=== PATIENT | male | born 1990 | race Caucasian/White ===

== ENCOUNTER 2018-11-26 09:36 | Emergency (ER) | payer OTHER ==
[2018-11-26 09:49] VITALS: RESP 18
--- NOTE | 2018-11-26 10:29 | ED ---
General Adult HPI - General Chief complaint: Fall Stated complaint: Fall-[facility] Time Seen by Provider: 11/26/18 09:45 Source: patient, EMS, RN notes reviewed Mode of arrival: EMS Limitations: no limitations - History of Present Illness Initial comments: This a 28-year-old male presents emergency Department with thoracic back pain. Patient is stating that he was at work and fell off a ladder his feet were six- foot hyper patient states he landed flat on his back per patient states he was wearing a hardhat and doesn't believe he hit his head. Patient denies any headache patient denies any loss of consciousness or being days. Patient denies any neck pain. Patient denies any numbness weakness. Patient denies any chest pain patient denies any difficulty breathing first breath per patient denies any abdominal pain patient denies any extremity pain. Patient states he is full range motion of all 4 tremors. Patient's only complaint is pain on the spine between her shoulder blades. - Related Data Home Medications Medication Instructions Recorded Confirmed Metadate Cd 40mg 40 mg PO DAILY 11/26/18 11/26/18 Previous Rx's Medication Instructions Recorded Ibuprofen [Motrin] 800 mg PO Q6H #20 tab 11/26/18 Allergies Allergy/AdvReac Type Severity Reaction Status Date / Time No Known Allergies Allergy Unverified 11/26/18 09:49 Review of Systems ROS Statement: Those systems with pertinent positive or pertinent negative responses have been documented in the HPI. ROS Other: All systems not noted in ROS Statement are negative. Past Medical History Past Medical History: No Reported History History of Any Multi-Drug Resistant Organisms: None Reported Past Surgical History: No Surgical Hx Reported Additional Past Surgical History / Comment(s): wisdom teeth removal 2011 Past Psychological History: No Psychological Hx Reported Smoking Status: Never smoker Past Alcohol Use History: None Reported Past Drug Use History: None Reported General Exam - General Exam Comments Initial Comments: GENERAL: Patient is well-developed and well-nourished. Patient is nontoxic and well- hydrated and is in mild distress. ENT: Neck is soft and supple. No significant lymphadenopathy is noted. Oropharynx is clear. Moist mucous membranes. Neck has full range of motion without eliciting any pain. EYES: The sclera were anicteric and conjunctiva were pink and moist. Extraocular movements were intact and pupils were equal round and reactive to light. Eyelids were unremarkable. PULMONARY: Unlabored respirations. Good breath sounds bilaterally. No audible rales rhonchi or wheezing was noted. CARDIOVASCULAR: There is a regular rate and rhythm without any murmurs gallops or rubs. ABDOMEN: Soft and nontender with normal bowel sounds. SKIN: Skin is clear with no lesions or rashes and otherwise unremarkable. NEUROLOGIC: Patient is alert and oriented x3. Cranial nerves II through XII are grossly intact. Motor and sensory are also intact. Normal speech, volume and content. Symmetrical smile. MUSCULOSKELETAL: Normal extremities with adequate strength and full range of motion. No lower extremity swelling or edema. No calf tenderness. Patient has some tenderness between his shoulder blades right on the spine. Patient has no scapular tenderness. Patient has no lower back tenderness. Patient has no C-spine tenderness. LYMPHATICS: No significant lymphadenopathy is noted PSYCHIATRIC: Normal psychiatric evaluation. Limitations: no limitations Course Vital Signs 11/26/18 11/26/18 11/26/18 09:37 10:00 10:15 Temperature 98.7 F Pulse Rate 105 H Respiratory 18 18 18 Rate Blood Pressure 140/97 140/97 130/93 O2 Sat by Pulse 100 100 Oximetry 11/26/18 11/26/18 10:30 10:45 Temperature Pulse Rate 90 Respiratory 18 18 Rate Blood Pressure 118/90 111/84 O2 Sat by Pulse 100 Oximetry Medical Decision Making - Medical Decision Making CT of the chest abdomen pelvis showed no acute abnormality. Patient was able to move her about the ER felt a little stiff. Patient had no new symptoms. Patient did receive Toradol emergency department. Disposition Clinical Impression: Fall, Thoracic back pain Disposition: HOME SELF-CARE Condition: Good Instructions (If sedation given, give patient instructions): Thoracic Pain (ED) Prescriptions: Ibuprofen [Motrin] 800 mg PO Q6H #20 tab Is patient prescribed a controlled substance at d/c from ED?: No Referrals: Ayden Caballero MD [Primary Care Provider] - 1-2 days Time of Disposition: 11:47
--- NOTE | 2018-11-26 11:18 | CT ---
EXAMINATION TYPE: CT ChestAbdPelvis w con DATE OF EXAM: 11/26/2018 COMPARISON: None. HISTORY: Fall injury with diffuse pain worse in the upper back. CT DLP: 797.9 mGycm. Automated Exposure Control for Dose Reduction was Utilized. CONTRAST: CT scan of the thorax, abdomen and pelvis is performed with IV Contrast, patient injected with 100 mL of Isovue 300. Trauma protocol. FINDINGS: LUNGS: Some patchy dependent atelectasis in both bases is present otherwise lungs are clear. No pleur al effusion or pneumothorax is seen. Tracheobronchial tree is patent. No suspicious nodules or masses MEDIASTINUM: There are no greater than 1 cm hilar or mediastinal lymph nodes. No cardiomegaly or pe ricardial effusion is seen. Some residual thymus tissue suspected in the anterior superior mediastin um OTHER: Small degree of bilateral subareolar gynecomastia axial image 27. LIVER/GB: Some small dependent calculi in gallbladder axial image 55. Liver is low density consistent with fatty infiltration. PANCREAS: No significant abnormality is seen. SPLEEN: No significant abnormality is seen. ADRENALS: No significant abnormality is seen. KIDNEYS: There is 6 mm calculus upper pole level left kidney axial image 57. BOWEL: Incidental wandering cecum into the anterior upper pelvis axial image 97. Terminal ileum is fe nando filled coronal image 34. Small bowel feces sign is consistent with delayed passage of ingested ma terial to colonic level as there is additional fecal material in the distal ileum in the right lower quadrant. No suspicious small bowel dilatation is seen to suggest bowel obstruction . GENITAL ORGANS: No gross abnormality seen. LYMPH NODES: No greater than 1cm abdominal or pelvic lymph nodes are appreciated. OSSEOUS STRUCTURES: No significant abnormality is seen. OTHER: Small fat-containing right inguinal hernia. IMPRESSION: No acute post traumatic finding in particular no acute osseous fracture, abnormal fluid c ollection, or evidence of solid organ injury in the thorax, abdomen, or pelvis. Some incidental find ings noted as detailed above.
[2018-11-26] MEDS ORDERED: KETOROLAC 60 MG/2 ML VIAL IVP STA (11:32)
[2018-11-26 12:27] VITALS: BP 131/79; PULSE 108; TEMP 99.4
== END 2018-11-26 12:27 | disposition home or self-care (01) ==
LOC: EC 09:36
DX: M54.6 Pain in thoracic spine (principal); Z79.899 Other long term (current) drug therapy; W11.XXXA Fall on and from ladder, initial encounter; Y92.69 Other specified industrial and construction area as the place of occurrence of the external cause; Y99.0 Civilian activity done for income or pay
CPT/HCPCS: 71260; 74177; 99284; 96374; J1885; Q9967